=== PATIENT | male | born 1995 | race Caucasian/White ===

== ENCOUNTER → 2019-08-16 15:39 | Outpatient (BNVA) | payer SELFPAY | PROVIDERS: PCP Family Medicine; Visit Provider Nurse Practitioner Family | DX: K21.9 Gastro-esophageal reflux disease without esophagitis (principal); R19.8 Other specified symptoms and signs involving the digestive system and abdomen | CPT/HCPCS: 80053; 85025 ==

== ENCOUNTER → 2020-06-03 15:40 | Outpatient (BNVA) | payer OTHER, SELFPAY | PROVIDERS: PCP Family Medicine; Visit Provider Nurse Practitioner Family | DX: Z11.59 Encounter for screening for other viral diseases (principal) | CPT/HCPCS: 87635 ==

== ENCOUNTER → 2021-04-16 10:04 | Outpatient (BNVA) | payer OTHER, SELFPAY | PROVIDERS: PCP Family Medicine; Visit Provider Nurse Practitioner Family | DX: Z11.52 Encounter for screening for COVID-19 (principal); Z20.822 Contact with and (suspected) exposure to COVID-19 | CPT/HCPCS: 87635 ==

== ENCOUNTER 2023-12-13 13:09 | Emergency (ER) | payer SELFPAY ==
--- NOTE | 2023-12-13 13:10 | XRR_ITS ---
PROCEDURE INFORMATION: Exam: XR Right Knee Exam date and time: 12/13/2023 1:43 PM Age: 28 years old Clinical indication: Pain; Right; Patient HX: Getting off of his horse when he immediately felt something pull/pop to his knee. ; Additional info: Injury TECHNIQUE: Imaging protocol: Radiologic exam of the right knee. Views: 3 views. COMPARISON: No relevant prior studies available. FINDINGS: Bones/joints: There is no evidence for acute fracture or malalignment. Soft tissues: Normal. XR/XR knee RT 3V* [id number] IMPRESSION: No acute findings.
[2023-12-13 13:19] VITALS: BP 159/98; PULSE 106; RESP 18; TEMP 36.6; O2SAT 97; BMI 43.0
--- NOTE | 2023-12-13 13:28 | W.ED.LOWEXIN ---
HPI - Extremity Injury (Lower) General: Chief Complaint: Extremity Problem,Nontraumatic Stated Complaint: right knee pain Time Seen by Provider: 12/13/23 13:11 Source: patient Mode of arrival: ambulatory Limitations: no limitations History of Present Illness: Patient is a 28-year-old male who presents to ED today with a complaint of right knee pain/right lower leg pain following an injury two weeks and two days ago . Patient states he was trying to get off a bucking horse when he was dismounting and states the horse stepped on the medial aspect of his right lower leg/foot/ankle. States he tweaked his knee too. States the lower leg/ankle/foot bothering him for a week or so but fees like this is slowly improving although does still have quite a bit of swelling and edema. His main concern is the knee and believes he possibly tore his ACL. Patient states since then he feels like the knee is swollen and feels like he has fluid within the joint. He is ambulatory here with a limp without assistance. MD complaint: knee injury, leg injury, ankle injury and foot injury Onset (ago): week(s) (two weeks ago) Injury: Right: knee, ankle and foot Type of Injury: blunt and other (crush/twisting) Place: home Severity: moderate Relieving factors: immobilization Exacerbating factors: weight bearing Context: other (getting off a horse/stepped on by horse) Associated symptoms: Reports no associated symptoms Other symptoms: none Review of Systems Musc: Reports: extremity pain, extremity swelling, joint pain (R knee), joint swelling (R knee) and limited range of motion (R knee); Denies: joint redness or joint warmth Skin/Breast: Reports: other (bruising R lower leg) Neuro: Denies: numbness in extremities or sensory changes PFSH ED PFSH: Social History Smoking and tobacco/nicotine status: current every day tobacco/nicotine user smokeless tobacco Smokeless tobacco user: chewing tobacco and snuff Smokeless tobacco details: chewed since age 4 Second hand smoke exposure: No Alcohol intake: current Alcohol intake frequency: few times a month Alcohol type: beer Substance/Drug Use: never Lives independently: Yes Household members: significant other and children Housing: House Marital status: Single Highest education level completed: GED or Equivalent service: No Current occupational status: employed Current occupation: Farming Current occupational exposures/hazards: Yes Current gender identity: Male Special sergio needs: No Agree to transfusion: Yes Physical Exam Const: COMMON NORMALS: no acute distress, patient oriented x3, no limitations, alert and well nourished GENERAL APPEARANCE: cooperative NUTRITIONAL APPEARANCE: obese morbidly obese ORIENTATION/CONSCIOUSNESS: Yes awake, Yes oriented to person, Yes oriented to place and Yes oriented to time Extremity: COMMON NORMALS: normal to inspection, capillary refill normal and no calf tenderness GENERAL: Yes normal exam except as noted RIGHT LOWER EXTREMITY: Yes knee joint Right knee: Yes inspection (normal gross inspection), Yes palpation (TTP anterior ), Yes ROM (limited ROM with full extension/flexion; normal middle movements), Yes neurovascular exam (normal) and Yes other (no obvious laxity but testing difficult due body habitus), Yes lower leg, Yes foot & digits and Yes foot & digits OTHER: pt has edema/ecchymosis to R medial lower leg/ankle/foot; he maintains normal ROM of ankle; no calf pain; pain not out of proportion to exam; NV intact Neuro: COMMON NORMALS: patient oriented x3, moves all extremities, no focal motor deficits and no sensory deficits noted SENSORIUM/ORIENTATION: Yes alert, Yes oriented to person, Yes oriented to place and Yes oriented to time Skin: COMMON NORMALS: no rashes or lesions noted GENERAL SKIN EXAM: no rashes or lesions noted Course Vital Signs: Vital signs: Vital Signs Temperature 97.9 F 12/13/23 13:19 Pulse Rate 106 H 12/13/23 13:19 Respiratory Rate 18 12/13/23 13:19 Blood Pressure 159/98 12/13/23 13:19 Pulse Oximetry 97 12/13/23 13:19 Oxygen Delivery Me thod Room Air 12/13/23 13:19 MDM - Extremity Injury (Lower) Medical Decision Making Personal interpretation of XRs are negative for bony injury. Nothing consistent with a compartment syndrome given his crush injury. He is concerned for internal derangement of the right knee. He is requesting CT and/MRI imaging. Explained to him CT imaging would not be the test of choice for internal derangement concerns and ultimately he would require MRI. Will have case management set him up with a primary care provider so they can evaluate the need for this versus continuing conservative therapies or possibly even physical therapy. He was offered crutches but declines. Medical Records I reviewed the patient's medical records. XR interpretation done by ED provider, pending radiology final review Discharge Plan Discharge Patient Disposition: Home Clinical Impression: Crushing injury of lower leg, right Qualifiers: Encounter type: initial encounter Qualified Code(s): S87.81XA - Crushing injury of right lower leg, initial encounter Injury of knee, right Qualifiers: Encounter type: initial encounter Qualified Code(s): S89.91XA - Unspecified injury of right lower leg, initial encounter Condition: Stable Prescriptions: No Action No Known Home Medications Discharge Orders: Discharge ED (Routine); Ordered 12/13/23 Ordered By: Brynn Estes Activity Restrictions/Additional Instructions: As we discussed we will have case management set you up to see a primary care doctor. From there they can evaluate the need for an outpatient MRI, continued conservative therapies, need for physical therapy, etc. Coding Level of Care Code ED [employer] for [facility]attie [facility]
--- NOTE | 2023-12-13 13:44 | XRR_ITS ---
PROCEDURE INFORMATION: Exam: XR Right Tibia and Fibula Exam date and time: 12/13/2023 1:46 PM Age: 28 years old Clinical indication: Injury or trauma; Other: --stepped on by horse; Blunt trauma; Lower leg; Right TECHNIQUE: Imaging protocol: Radiologic exam of the right tibia and fibula. Views: 2 views. COMPARISON: CR XR foot RT min 3V* [id number] 12/13/2023 1:45 PM FINDINGS: Bones/joints: There is no evidence for acute fracture or malalignment. Soft tissues: Normal. XR/XR tibia fibula RT 2V [id number] IMPRESSION: No acute findings.
--- NOTE | 2023-12-13 13:44 | XRR_ITS ---
PROCEDURE INFORMATION: Exam: XR Right Foot Exam date and time: 12/13/2023 1:45 PM Age: 28 years old Clinical indication: Injury or trauma; Other: --stepped on by horse; Blunt trauma; Foot; Right TECHNIQUE: Imaging protocol: Radiologic exam of the right foot. Views: 3 or more views. COMPARISON: CR XR knee RT 3V* [id number] 12/13/2023 1:43 PM FINDINGS: Bones/joints: There is no evidence for acute fracture or malalignment. Soft tissues: Normal. XR/XR foot RT min 3V* [id number] IMPRESSION: No acute findings.
[2023-12-13 14:28] VITALS: BP 151/97; PULSE 95; RESP 16; O2SAT 98
--- NOTE | 2023-12-19 10:21 | DCPLANNER ---
messaged sent for referral to PCP as er f/u
== END 2023-12-13 14:29 | disposition home or self-care (01) ==
PROVIDERS: Emergency Provider Physician Assistant
DX: S87.81XA Crushing injury of right lower leg, initial encounter (principal); F17.220 Nicotine dependence, chewing tobacco, uncomplicated; W55.12XA Struck by horse, initial encounter
CPT/HCPCS: 73562; 73590; 73630; 99284